=== PATIENT | male | born 1980 | race Two or more races ===

== ENCOUNTER 2018-03-02 22:50 | Emergency (ER) | payer SELFPAY ==
[~2018-03-02] VITALS: Ht 185.4 cm; Wt 103.4 kg
[2018-03-03 00:18] VITALS: BP 109/69
[2018-03-03] MEDS ORDERED: AMOXICILLIN500 MG ORAL (00:19)
[2018-03-03] MEDS ORDERED: IBUPROFEN600 MG ORAL (00:19)
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
== END 2018-03-03 00:43 | disposition home or self-care (01) ==
LOC: EMR 23:27
DX: K04.7 Periapical abscess without sinus (principal); Z95.1 Presence of aortocoronary bypass graft; J45.909 Unspecified asthma, uncomplicated; Z87.11 Personal history of peptic ulcer disease
CPT/HCPCS: 10060; 99284